=== PATIENT | female | born 1950 ===

== ENCOUNTER 2016-12-12 14:43 | Emergency (ER) | payer MEDICARE, OTHER ==
[2016-12-12 14:43] VITALS: BMI 29.2
[2016-12-12 16:54] LABS: RBC URINE 1 /hpf (0-3); URINE BILIRUBIN NEGATIVE (NEGATIVE); URINE BLOOD NEGATIVE (NEGATIVE); URINE COLOR Yellow (YELLOW); URINE GLUCOSE (UA) NORMAL (Normal); URINE KETONE NEGATIVE (NEGATIVE); URINE LEUKOCYTE ESTERASE 3+ Leu/uL (Negative); URINE PROTEIN NEGATIVE (NEGATIVE); URINE UROBILINOGEN NORMAL mg/dL (0.2-1.0); WBC URINE 3 /hpf (0-5)
--- NOTE | 2016-12-12 17:45 | RAD ---
PROCEDURE: Radiographs of the Lumbar Spine. HISTORY: Lumbar back pain COMPARISON: None available. FINDINGS: BONES: Alignment appears satisfactory. No listhesis. No acute displaced fracture identified. Degenerative changes including small anterior osteophyte formation. Facet hypertrophy. DISC SPACES: Unremarkable. OTHER FINDINGS: Dense atherosclerotic calcifications of the aorta. IMPRESSION: Degenerative changes. Dense atherosclerotic calcifications of the abdominal aorta. No acute displaced fracture or subluxation identified.
--- NOTE | 2016-12-12 18:02 | C.PDOC ---
History Of Present Illness Pt c/o low back pain. Time Seen by Provider: 12/12/16 16:13 Chief Complaint (Nursing): Back Pain History Per: Patient Onset/Duration Of Symptoms: Days (about 1 week) Current Symptoms Are (Timing): Still Present Severity: Moderate Previous Symptoms: Back Pain Associated Symptoms: None. denies: Incontinence, New Weakness, New Numbness Exacerbating Factor(s): Movement Additional History Per: Prior Records Past Medical History Reviewed: Historical Data, Nursing Documentation, Vital Signs Vital Signs: Last Vital Signs Temp 98.0 F 12/12/16 15:20 Pulse 57 L 12/12/16 15:20 Resp 16 12/12/16 15:20 BP 154/84 H 12/12/16 15:20 Pulse Ox 100 12/12/16 15:20 - Medical History PMH: Colonic Polyps, Gastritis, HTN Surgical History: Endoscopy Family History: States: Unknown Family Hx - Social History Hx Tobacco Use: No Hx Alcohol Use: No Hx Substance Use: No - Immunization History Hx Tetanus Toxoid Vaccination: No Hx Influenza Vaccination: No Hx Pneumococcal Vaccination: No Review Of Systems Except As Marked, All Systems Reviewed And Found Negative. Constitutional: Negative for: Fever, Weakness Cardiovascular: Negative for: Chest Pain Respiratory: Negative for: Shortness of Breath Gastrointestinal: Negative for: Vomiting, Abdominal Pain, Diarrhea Genitourinary: Negative for: Dysuria, Incontinence, Hematuria Musculoskeletal: Positive for: Back Pain (low). Negative for: Neck Pain, Leg Pain Skin: Negative for: Rash Neurological: Negative for: Weakness, Numbness, Seizures, Altered Mental Status Physical Exam - Physical Exam Appears: Non-toxic, No Acute Distress Skin: Normal Color, Warm, Dry, No Rash Head: Atraumatic, Normacephalic Eye(s): bilateral: PERRL, EOMI Neck: Normal ROM, Supple Cardiovascular: Rhythm Regular Respiratory: Normal Breath Sounds, No Accessory Muscle Use Gastrointestinal/Abdominal: Soft, No Tenderness, No Mass Back: No CVA Tenderness Extremity: Normal ROM, No Deformity Neurological/Psych: Oriented x3, Normal Motor, Normal Sensation Gait: Steady ED Course And Treatment O2 Sat by Pulse Oximetry: 100 Pulse Ox Interpretation: Normal - Other Rad LS spine x-rays X-Ray: Viewed By Me, Read By Radiologist Interpretation: IMPRESSION: Degenerative changes. Dense atherosclerotic calcifications of the abdominal aorta. No acute displaced fracture or subluxation identified. Disposition Counseled Patient/Family Regarding: Studies Performed, Diagnosis, Need For Followup, Rx Given - Disposition Referrals: Lawson Borrero MD [Medical Doctor] - Disposition: HOME/ ROUTINE Disposition Time: 18:02 Condition: IMPROVED Additional Instructions: Follow up with your doctor for further evaluation and treatment. Return to the ER if you develop weakness, numbness, abdominal pain, trouble urinating, worsening of symptoms or if you have any other concerns. Prescriptions: traMADol/Acetaminophen [Ultracet 325 MG-37.5 MG] 1 tab PO Q4 PRN #30 tab PRN Reason: Pain Instructions: Acute Low Back Pain (ED) Print Language: MALTESE - Clinical Impression Clinical Impression: Low back pain
[2016-12-12 18:43] VITALS: BP 137/84; PULSE 98; RESP 20; TEMP 97.5; O2SAT 97
== END 2016-12-12 18:43 | disposition home or self-care (01) ==
LOC: C.ER 14:43
DX: M54.5 Low back pain (principal)
CPT/HCPCS: 72100; 81001; 96372; 99284; J1885

== ENCOUNTER 2017-03-17 09:44 | Emergency (ER) | payer MEDICARE, OTHER ==
[2017-03-17 09:44] VITALS: BMI 29.2
[2017-03-17 09:48] VITALS: TEMP 97.6
--- NOTE | 2017-03-17 10:19 | C.PDOC ---
History Of Present Illness 66 yo female presents to the ED for evaluation of right sided low back pain for the past 1 week. Pt denies any falls or injuries, abdominal pain, dysuria/ hematuria, fever. She is also complaining of bilateral knee pain which is chronic. Pt reports she has been taking Tylenol for pain with minimal relief. Time Seen by Provider: 03/17/17 10:00 Chief Complaint (Nursing): Back Pain History Per: Patient History/Exam Limitations: no limitations Onset/Duration Of Symptoms: Days Current Symptoms Are (Timing): Still Present Quality Of Discomfort: "Pain" Severity: Mild Previous Symptoms: Back Pain Associated Symptoms: None. denies: Incontinence, New Weakness, New Numbness Exacerbating Factor(s): Movement Past Medical History Reviewed: Historical Data, Nursing Documentation, Vital Signs Vital Signs: Last Vital Signs Temp 97.6 F 03/17/17 09:46 Pulse 64 03/17/17 11:50 Resp 15 03/17/17 11:50 BP 122/77 03/17/17 11:50 Pulse Ox 99 03/17/17 11:50 - Medical History PMH: Colonic Polyps, Gastritis, HTN Surgical History: Endoscopy Family History: States: No Known Family Hx - Social History Hx Tobacco Use: No Hx Alcohol Use: No Hx Substance Use: No - Immunization History Hx Tetanus Toxoid Vaccination: No Hx Influenza Vaccination: No Hx Pneumococcal Vaccination: No Review Of Systems Except As Marked, All Systems Reviewed And Found Negative. Constitutional: Negative for: Fever Cardiovascular: Negative for: Chest Pain, Palpitations Respiratory: Negative for: Shortness of Breath Gastrointestinal: Negative for: Abdominal Pain Genitourinary: Negative for: Dysuria, Hematuria Musculoskeletal: Positive for: Back Pain. Negative for: Other (B/L knee pain) Neurological: Negative for: Weakness, Numbness Physical Exam - Physical Exam Appears: Well, Non-toxic, No Acute Distress Skin: Normal Color, Warm, Dry, No Rash Cardiovascular: Rhythm Regular Respiratory: Normal Breath Sounds, No Rales, No Rhonchi, No Wheezing Gastrointestinal/Abdominal: Normal Exam, Bowel Sounds, Soft, No Tenderness Back: Normal Inspection, No Vertebral Tenderness, No Paraspinal Tenderness Extremity: Normal ROM, No Tenderness, No Calf Tenderness, Capillary Refill (< 2 sec all digits ), No Deformity, No Swelling Extremity: Bilateral: Atraumatic, Normal Color And Temperature, Normal ROM Neurological/Psych: Oriented x3, Normal Motor, Normal Sensation Gait: Steady ED Course And Treatment O2 Sat by Pulse Oximetry: 100 (RA) Pulse Ox Interpretation: Normal - Other Rad B/L KNEES XRAY X-Ray: Interpreted by Me, Viewed By Me (arthritic changes, no fractures/ dislocations) LS SPINE XRAY X-Ray: Interpreted by Me, Viewed By Me (no fractures/listhesis) Progress Note: Patient given IM toradol and PO flexeril. Patient requesting Xrays - Xrays of LS spine and B/L knees ordered and reviewed. Unremarkable physical exam. Reevaluation Time: 11:40 Reassessment Condition: Improved (On reassessment, patient states her pain has improved. She is ambulating normally in ED. Rxs for Naprosyn and Flexeril given, and patient instructed to follow up with orthopedics within 1 week. She understands she should return to Ed if symptoms worsen.) Medical Decision Making Medical Decision Making: . Disposition Counseled Patient/Family Regarding: Studies Performed, Diagnosis, Need For Followup, Rx Given - Disposition Referrals: Masood Rowell III, MD [Staff Provider] - Lawson Borrero MD [Medical Doctor] - Disposition: HOME/ ROUTINE Disposition Time: 11:45 Condition: STABLE Additional Instructions: SEGUIMIENTO CON CHENG MDICO EN 1-2 PINTO USE LOS MEDICAMENTOS QUE CHAVO NECESARIOS PARA EL DOLOR DEVUELVA A LA CHUCK DE EMERGENCIA SI LOS SNTOMAS EMPEORARAN Prescriptions: Acetaminophen with Codeine [Tylenol with Codeine #3 Tablet] 1 each PO Q6 PRN # 15 tablet PRN Reason: pain Instructions: Acute Low Back Pain (ED), Knee Pain (ED), Arthritis (ED) Forms: [employer] (Citizen [place]) Print Language: INDONESIAN - POA Present On Arrival: None - Clinical Impression Clinical Impression: Lumbar sprain, Chronic knee pain - Scribe Statement The provider has reviewed the documentation as recorded by the Priyanka Rodarte Provider Attestation: Provider Scribe Attestation: All medical record entries made by the Scribe were at my direction and personally dictated by me. I have reviewed the chart and agree that the record accurately reflects my personal performance of the history, physical exam, medical decision making, and the department course for this patient. I have also personally directed, reviewed, and agree with the discharge instructions and disposition.
--- NOTE | 2017-03-17 11:05 | RAD ---
PROCEDURE: Bilateral Knee Radiographs. HISTORY: B/L KNEE PAIN COMPARISON: None. FINDINGS: BONES: Right Knee: Normal. No fracture. Left Knee: Normal. No fracture. JOINTS: Right Knee: Medial and patellofemoral osteoarthritis. Lateral compartment appears preserved. No articular erosion. Left knee: Medial and patellofemoral osteoarthritis. Lateral compartment appears preserved. No articular erosion. SOFT TISSUES: Right Knee: Normal. Left Knee: Curvilinear soft tissue calcification in the medial left knee medial to the medial tibial condyle, uncertain significance. JOINT EFFUSION: Right Knee: Trace Left Knee: None. OTHER FINDINGS: None. IMPRESSION: Bilateral medial and patellofemoral osteoarthritis.
--- NOTE | 2017-03-17 11:08 | RAD ---
PROCEDURE: Radiographs of the Lumbar Spine. HISTORY: LOW BACK PAIN COMPARISON: No prior. FINDINGS: BONES: Normal alignment. No listhesis. No fracture. DISC SPACES: Disc spaces are preserved in height. Spondylotic change noted predominantly at L2-3 and L3-4 with marginal osteophytes. OTHER FINDINGS: None. IMPRESSION: No evidence of fracture or degenerative disc disease
[2017-03-17 11:50] VITALS: BP 122/77; PULSE 64; RESP 15
[2017-03-23 08:02] VITALS: O2SAT 100
== END 2017-03-17 11:49 | disposition home or self-care (01) ==
LOC: C.ER 09:44
DX: S33.5XXA Sprain of ligaments of lumbar spine, initial encounter (principal); X58.XXXA Exposure to other specified factors, initial encounter; G89.29 Other chronic pain; M25.562 Pain in left knee; M25.561 Pain in right knee
CPT/HCPCS: 72100; 73562; 96372; 99283; J1885

== ENCOUNTER 2018-08-28 07:48 | Outpatient (CLI) | payer MEDICARE, OTHER | END 2018-08-28 07:49 | disposition home or self-care (01) | LOC: C.RADH 07:48 | DX: M25.562 Pain in left knee (principal) ==

== ENCOUNTER 2018-09-11 08:17 | Outpatient (CLI) | payer MEDICARE, OTHER | END 2018-09-11 08:18 | disposition home or self-care (01) | LOC: C.LAB 08:17 | DX: M25.562 Pain in left knee (principal); Z96.652 Presence of left artificial knee joint ==

== ENCOUNTER 2018-09-13 07:06 | Outpatient (CLI) | payer MEDICARE, OTHER | END 2018-09-13 08:30 | disposition home or self-care (01) | LOC: C.RADH 07:06 ==

== ENCOUNTER 2018-09-13 08:26 | Emergency (ER) | payer MEDICARE, OTHER ==
[2018-09-13 08:27] VITALS: BMI 29.2
[2018-09-13 08:34] VITALS: TEMP 98.4
--- NOTE | 2018-09-13 10:46 | RAD ---
Date of service: 09/13/2018 PROCEDURE: Radiographs of the Right Shoulder HISTORY: s/p fall - r/o fx COMPARISON: No prior. FINDINGS: BONES: No acute fracture or destructive bony lesion identified. JOINTS: No dislocation or subluxation appreciated. Degenerative cortical sclerosis and osteophyte development are seen at the glenohumeral joint inferiorly and are also present at the acromioclavicular joint. SOFT TISSUES: Small calcification superolateral to the greater tuberosity compatible with calcific tendinopathy. OTHER FINDINGS: None. IMPRESSION: No acute fracture or dislocation right shoulder. Degenerative changes as discussed above. Also evidence of calcific tendinosis.
[2018-09-13 11:00] VITALS: BP 139/79; PULSE 66; RESP 18; O2SAT 97
--- NOTE | 2018-09-13 12:33 | C.PDOC ---
History Of Present Illness 67 y/o female presents to the ER complaining of right shoulder pain which has been present for the past 1.5 weeks. Patient states that she had a fall at the time. Patient reports that she did not seek medical attention after the fall.Denies having LOC, head injury, headache, dizziness, fever,chills, CP, and SOB. Chief Complaint (Nursing): Upper Extremity Problem/Injury History Per: Patient History/Exam Limitations: no limitations Onset/Duration Of Symptoms: Days Current Symptoms Are (Timing): Still Present Severity: Moderate Past Medical History Reviewed: Historical Data, Nursing Documentation, Vital Signs Vital Signs: Last Vital Signs Temp 98.4 F 09/13/18 08:32 Pulse 66 09/13/18 10:59 Resp 18 09/13/18 10:59 BP 139/79 09/13/18 10:59 Pulse Ox 97 09/13/18 10:59 - Medical History PMH: Colonic Polyps, Gastritis, HTN Denies: Chronic Kidney Disease Surgical History: Endoscopy Family History: States: No Known Family Hx - Social History Hx Tobacco Use: No Hx Alcohol Use: No Hx Substance Use: No - Immunization History Hx Tetanus Toxoid Vaccination: No Hx Influenza Vaccination: No Hx Pneumococcal Vaccination: No Review Of Systems Except As Marked, All Systems Reviewed And Found Negative. Constitutional: Negative for: Fever, Chills Cardiovascular: Negative for: Chest Pain Respiratory: Negative for: Shortness of Breath Musculoskeletal: Positive for: Shoulder Pain (right shoulder pain) Neurological: Negative for: Headache, Dizziness Physical Exam - Physical Exam Appears: Non-toxic, No Acute Distress Skin: Normal Color, Warm, Dry Head: Atraumatic, Normacephalic Eye(s): bilateral: Normal Inspection Nose: Normal Oral Mucosa: Moist Neck: Supple Chest: Symmetrical Cardiovascular: Rhythm Regular Respiratory: Normal Breath Sounds, No Rales, No Rhonchi, No Wheezing Extremity: No Normal ROM (decreased ROM in right shoulder), Tenderness (tenderness to anterior aspect of right shoulder), No Swelling Pulses: Right Brachial: Normal Neurological/Psych: Oriented x3, Normal Speech ED Course And Treatment O2 Sat by Pulse Oximetry: 97 (RA) Pulse Ox Interpretation: Normal Medical Decision Making Medical Decision Making: Plan: --X-Ray-Right Shoulder --Toradol IM Disposition - Disposition Referrals: [facility] Connor Cabrera, [Non-Staff] - Disposition: HOME/ ROUTINE Disposition Time: 09:30 Condition: GOOD Additional Instructions: YURI KEVIN, thank you for letting us take care of you today. The emergency medical care you received today was directed at your acute symptoms. If you were prescribed any medication, please fill it and take as directed. It may take several days for your symptoms to resolve. Return to the Emergency Department if your symptoms worsen, do not improve, or if you have any other problems. Please contact your doctor or call one of the physicians/clinics you have been referred to that are listed on the Patient Visit Information form that is included in your discharge packet. Bring any paperwork you were given at discharge with you along with any medications you are taking to your follow up visit. Our treatment cannot replace ongoing medical care by a primary care provider outside of the emergency department. Thank you for allowing the [employer] team to be part of your care today. Follow up with your primary care doctor early next week for re-evaluation and further management. Prescriptions: Ibuprofen [Motrin] 600 mg PO Q6 PRN #20 tab PRN Reason: Pain, Moderate (4-7) Instructions: Osteoarthritis (DC) Forms: [employer] (Burmese) - Clinical Impression Clinical Impression: Osteoarthritis - Scribe Statement The provider has reviewed the documentation as recorded by the Priyanka Luna Provider Attestation: All medical record entries made by the Rajibe were at my direction and personally dictated by me. I have reviewed the chart and agree that the record accurately reflects my personal performance of the history, physical exam, medical decision making, and the department course for this patient. I have also personally directed, reviewed, and agree with the discharge instructions and disposition.
== END 2018-09-13 11:00 | disposition home or self-care (01) ==
LOC: C.ER 08:26
DX: M19.011 Primary osteoarthritis, right shoulder (principal)
CPT/HCPCS: 73030; 96372; 99284; J1885

== ENCOUNTER 2018-09-17 07:42 | Outpatient (CLI) | payer MEDICARE, OTHER | END 2018-09-17 07:43 | disposition home or self-care (01) | LOC: C.LAB 07:42 ==

== ENCOUNTER 2018-09-18 08:41 | Outpatient (CLI) | payer MEDICARE, OTHER | END 2018-09-18 08:42 | disposition home or self-care (01) | LOC: C.RADH 08:41 → C.NUCMED 08:42 ==

== ENCOUNTER 2018-10-11 08:11 | Outpatient (CLI) | payer MEDICARE, OTHER | END 2018-10-11 08:12 | disposition home or self-care (01) | LOC: C.LAB 08:11 | DX: E55.9 Vitamin D deficiency, unspecified (principal) ==